=== PATIENT | male | born 1940 | race Caucasian/White ===

== ENCOUNTER 2017-03-08 14:46 | Outpatient (CLI) | payer MEDICARE, MEDICAID ==
[~2017-03-08 14:46] MED LIST: CLOTRIMAZOLE15 GM TOPIC; MULTIVITAMINS1 EA11 ORAL; NKM; VIAGRA25 MG ORAL; VITAMIN D250000 UNI1 ORAL
--- NOTE | 2017-03-08 15:25 | GI Progress Note ---
Assessment/Plan Problems: (1) Weight loss ICD Codes: R63.4 - Abnormal weight loss SNOMED: 98328473, 236679798 (2) Occult blood positive stool ICD Codes: R19.5 - Occult blood positive stool SNOMED: 53684302 (3) Macrocytic anemia ICD Codes: D53.9 - Macrocytic anemia SNOMED: 28052392 (4) Internal hemorrhoids ICD Codes: K64.8 - Internal hemorrhoids SNOMED: 28871121 Status: stable Status Narrative Seen with Dr. Mcghee. Assessment/Plan EGD/colonoscopy scheduled for 03/13/17. - CLD & (Nulytely/Suprep) prep instructions given and acknowledged by patient. - NPO @ ME day prior procedure explained. The patient was seen and examined at bedside and all new and available data was reviewed in the patients chart. I agree with the above findings, impression and plan. (Patient seen earlier today. Signature stamp does not reflect patient encounter time.). -Jasiel Mcghee MD Subjective Subjective No GI symptoms colonoscopy 2012 25 lbs weight loss Objective T 98.4 BP 105/54 P 65 WT 171 lbs General Appearance: WD/WN, no apparent distress, alert Cardiovascular: normal rate Respiratory/Chest: normal breath sounds, no respiratory distress Abdominal Exam: normal bowel sounds, non tender, soft Extremities: normal range of motion, non-tender Antonia Gilliland NChing Mar 08, 2017 15:25 JASIEL MCGHEE Mar 09, 2017 07:24
[2017-03-08 15:40] VITALS: BP 105/54
== END 2017-03-08 15:15 | disposition home or self-care (01) ==
LOC: PAN 14:46
DX: R63.4 Abnormal weight loss (principal); R19.5 Other fecal abnormalities; D53.9 Nutritional anemia, unspecified; K64.8 Other hemorrhoids
CPT/HCPCS: 99211

== ENCOUNTER 2017-03-13 08:09 | Day surgery (SDC) | payer MEDICARE, MEDICAID ==
[2017-03-13] VITALS (9 sets, daily range): BP systolic 123–165; BP diastolic 64–78
[~2017-03-13] VITALS: Ht 165.1 cm; Wt 77.1 kg
[2017-03-13] MEDS ORDERED: ASPIR 8181 MG ORAL (08:50)
[2017-03-13] MEDS ORDERED: VITAMIN D250000 UNI1 ORAL (08:50)
[2017-03-13] MEDS ORDERED: FOLIC ACID1 M1 PO (08:50)
--- NOTE | 2017-03-13 10:25 | Short Stay Surgery H&P ---
History of Present Illness History of Present Illness Chief Complaint see office consult note HPI Dayana Carter is a 76 year old male who was admitted on for Anemia,Weight Loss Patient History Allergies: Coded Allergies: No Known Allergies (Unverified , 03/13/17) NKA PAST MEDICAL HISTORY: Past Surgeries: Social History: Medication History Scheduled Aspirin* (Aspir 81*), 81 MG ORAL DAILY, (Reported) Ergocalciferol (Vitamin D2)* (Vitamin D*), 50,000 UNIT ORAL ONCE A WEEK, ( Reported) Folic Acid (Folic Acid), 1 MG PO DAILY, (Reported) Discontinued Medications Clotrimazole* (Lotrimin*), 1 APPLIC TOPIC TWICE A DAY, (Reported) Discontinued Reason: MD discontinued med Ergocalciferol (Vitamin D2)* (Vitamin D*), 50,000 UNIT ORAL ONCE A WEEK, ( Reported) Discontinued Reason: MD discontinued med Multivitamin (Multivitamins), 1 CAP ORAL DAILY, (Reported) Discontinued Reason: MD discontinued med Sildenafil Citrate (Viagra), 100 MG ORAL DAILY, (Reported) Discontinued Reason: MD discontinued med Physical Exam Vital Signs Last Vital Signs Date Time Temp Pulse Resp B/P (MAP) Pulse Ox O2 Delivery O2 Flow Rate FiO2 03/13/17 08:52 98.5 56 19 130/64 96 Room Air Plan Attestation Are the patient's medical conditions optimized for surgery? ELSI DEY Mar 13, 2017 10:25
--- NOTE | 2017-03-13 10:25 | Pre-Procedure Note/Attestation ---
Pre-Procedure Note/Attestation Complete Prior to Procedure Planned Procedure: not applicable Procedure Narrative: esophagogastroduodenoscopy and colonoscopy Indications for Procedure Pre-Operative Diagnosis: screening colon, GERD Attestation I attest that I discussed the nature of the procedure; its benefits; risks and complications; and alternatives (and the risks and benefits of such alternatives ), prior to the procedure, with the patient (or the patient's legal outside energy sales representatives). I attest that, if there was a reasonable possibility of needing a blood transfusion, the patient (or the patient's legal outside energy sales representatives) was given the [facility] standardized written summary, pursuant to the [place] Blood Safety Act ([place] Health and Safety Code # 1645, as amended). I attest that I re-evaluated the patient just prior to the surgery and that there has been no change in the patient's H&P, except as documented below: ELSI DEY Mar 13, 2017 10:25
--- NOTE | 2017-03-13 10:25 | Pre-Procedure Note/Attestation ---
Pre-Procedure Note/Attestation Complete Prior to Procedure Planned Procedure: not applicable Procedure Narrative: esophagogastroduodenoscopy and colonoscopy Indications for Procedure Pre-Operative Diagnosis: screening colon, GERD Attestation I attest that I discussed the nature of the procedure; its benefits; risks and complications; and alternatives (and the risks and benefits of such alternatives ), prior to the procedure, with the patient (or the patient's legal sales representative consultant). I attest that, if there was a reasonable possibility of needing a blood transfusion, the patient (or the patient's legal sales representative consultant) was given the [facility] standardized written summary, pursuant to the [place] Blood Safety Act ([place] Health and Safety Code # 1645, as amended). I attest that I re-evaluated the patient just prior to the surgery and that there has been no change in the patient's H&P, except as documented below: ELSI DEY Mar 13, 2017 10:25
--- NOTE | 2017-03-13 10:25 | Pre-Procedure Note/Attestation ---
Pre-Procedure Note/Attestation Complete Prior to Procedure Planned Procedure: not applicable Procedure Narrative: esophagogastroduodenoscopy and colonoscopy Indications for Procedure Pre-Operative Diagnosis: screening colon, GERD Attestation I attest that I discussed the nature of the procedure; its benefits; risks and complications; and alternatives (and the risks and benefits of such alternatives ), prior to the procedure, with the patient (or the patient's legal access representative). I attest that, if there was a reasonable possibility of needing a blood transfusion, the patient (or the patient's legal access representative) was given the [facility] standardized written summary, pursuant to the [place] Blood Safety Act ([place] Health and Safety Code # 1645, as amended). I attest that I re-evaluated the patient just prior to the surgery and that there has been no change in the patient's H&P, except as documented below: ELSI DEY Mar 13, 2017 10:25
[2017-03-13] MEDS ORDERED: Propofol 200mg/20ml IV ONE (10:30)
[2017-03-13] MEDS ORDERED: Lidocaine 1% MPF 10mg/ml 5ml ONE (10:30)
--- NOTE | 2017-03-13 10:58 | Endoscopy Procedure Note ---
Endoscopy Procedure Note Indication for Procedure: wt loss Procedures Performed: EGD, colonoscopy Operative Findings/Diagnosis: one polyp Specimen: yes Pt Tolerated Procedure Well: Yes Estimated Blood Loss: none Anesthesiologist: jasmyn Anesthesia: MAC Implant(s) used?: No 50 yrs or older w/o bx or poly: No 10yrs. F/U not recommended: Yes If not recommended, why?: Above average risk 10 yrs. F/U needed: Yes 18 years or older w/prev. colo: Yes <3yrs. since last colonoscopy: No ELSI DEY Mar 13, 2017 10:58
--- NOTE | 2017-03-13 11:03 | Anethesia Preoperative Eval ---
Anesthesia Pre-op PMH/ROS General Date of Evaluation: Mar 13, 2017 Time of Evaluation: 10:35 Anesthesiologist: johnny ASA Score: ASA 3 Mallampati Score Class I : Soft palate, uvula, fauces, pillars visible Class II: Soft palate, uvula, fauces visible Class III: Soft palate, base of uvula visible Class IV: Only hard plate visible Mallampati Classification: Class II Surgeon: best Diagnosis: anemia Surgical Procedure: egd/colonoscopy Anesthesia History: none Family History: no anesthesia problems Allergies: Coded Allergies: No Known Allergies (Unverified , 03/13/17) NKA Medications: see eMAR Past Medical History Gastrointestinal/Genitourinary: Reports: other - gastritis HEENT: Reports: cataract (L), cataract (R) Hematology/Immune: Reports: anemia Anesthesia Pre-op Phys. Exam Physician Exam Last Vital Signs Date Time Temp Pulse Resp B/P (MAP) Pulse Ox O2 Delivery O2 Flow Rate FiO2 03/13/17 08:52 98.5 56 19 130/64 96 Room Air Constitutional: NAD Neurologic: CN 2-12 intact Cardiovascular: RRR Respiratory: CTA Gastrointestinal: S/NT/ND Airway Exam Mallampati Score: Class II MO: full Neck: supple TMD: 2fb ROM: full Anesthesia Pre-op A/P Studies Pre-op Studies: EKG - sinus bradycardia Risk Assessment & Plan Assessment: asa3 Plan: mac Status Change Before Surgery: No Pre-Antibiotics Drug: TESSIE Ron Mar 13, 2017 11:03
[2017-03-13 11:39] LABS: HEMATOCRIT 40.9 % (42.0-52.0); MEAN CORPUSCULAR VOLUME 104 FL (80-99); PLATELET COUNT 86 K/UL (150-450); RED BLOOD COUNT 3.93 M/UL (4.70-6.10); RED CELL DISTRIBUTION WIDTH 10.9 % (11.6-14.8); WHITE BLOOD COUNT 4.1 K/UL (4.8-10.8)
[2017-03-13 12:00] LABS: ALANINE AMINOTRANSFERASE 23 U/L (12-78); ALBUMIN 3.7 G/DL (3.4-5.0); ALBUMIN/GLOBULIN RATIO 1.1 (1.0-2.7); ALKALINE PHOSPHATASE 70 U/L (46-116); AMYLASE 94 U/L (25-115); ANION GAP 4 mmol/L (5-15); ASPARTATE AMINO TRANSFERASE 20 U/L (15-37); BILIRUBIN,TOTAL 0.9 MG/DL (0.2-1.0); BLOOD UREA NITROGEN 16 mg/dL (7-18); CALCIUM 9.1 MG/DL (8.5-10.1); CARBON DIOXIDE 32 MMOL/L (21-32); CHLORIDE 105 MMOL/L (98-107); CREATININE 1.1 MG/DL (0.55-1.30); POTASSIUM 4.5 MMOL/L (3.5-5.1); SODIUM 141 MMOL/L (136-145)
[2017-03-13] MEDS ORDERED: LR 1000ml 1,000 ML IVLG SCH (12:09)
[2017-03-13] MEDS ORDERED: Atropine Inj 1mg/10ml Syr IV PRN (12:15)
[2017-03-13] MEDS ORDERED: fentaNYL 100 mcg/2 mL IV PRN (12:15)
[2017-03-13] MEDS ORDERED: Midazolam 2mg/2ml Inj IVP PRN (12:15)
[2017-03-13] MEDS ORDERED: DiphenhydrAMINE 50mg/ml Inj IVP PRN (12:15)
--- NOTE | 2017-03-13 12:19 | Immediate Post-Op Evaluation ---
Immediate Post-Op Evalulation Immediate Post-Op Evalulation Procedure: egd/colonoscopy Date of Evaluation: Mar 13, 2017 Time of Evaluation: 11:18 IV Fluids: 300ml 0.9ns Blood Products: none Estimated Blood Loss: negligible Blood Pressure Systolic: 129 Blood Pressure Diastolic: 69 Pulse Rate: 47 Respiratory Rate: 18 O2 Sat by Pulse Oximetry: 100 Temperature (Fahrenheit): 97.0 Pain Score (1-10): 0 Nausea: No Vomiting: No Complications none Patient Status: awake, reacts, patent Drug: TESSIE Ron Mar 13, 2017 12:19
--- NOTE | 2017-03-13 12:55 | 48 Hour Post Anesthesia Eval ---
Post Anesthesia Evaluation Procedure: egd/colonoscopy Date of Evaluation: Mar 13, 2017 Time of Evaluation: 11:20 Blood Pressure Systolic: 123 0: 70 Pulse Rate: 49 Respiratory Rate: 18 Temperature (Fahrenheit): 97.0 O2 Sat by Pulse Oximetry: 99 Airway: patent Nausea: No Vomiting: No Pain Intensity: 0 Hydration Status: adequate Cardiopulmonary Status: stable Mental Status/LOC: patient returned to baseline Post-Anesthesia Complications: none Follow-up care needed: N/A TESSIE MURRAY Mar 13, 2017 12:55
--- NOTE | 2017-03-13 16:15 | Procedure Note ---
DATE OF PROCEDURE: 03/13/2017 SURGEON: Jasiel Mcghee M.D. PROCEDURE: Colonoscopy with snare polypectomy and endoscopy with biopsy. ANESTHESIOLOGIST: Sparkle Patel M.D. INSTRUMENT: Olympus adult flexible upper endoscope and colonoscope. INDICATION: Significant weight loss. REASON FOR PROCEDURE: The procedure, risks, benefits, and possible consequences, including hemorrhage, aspiration, perforation and infection, and alternative treatments, were explained to the patient/legal guardian by Dr. Jasiel Mcghee and the patient/legal guardian understood and accepted these risks. PROCEDURE: After informed consent was obtained and the patient was adequately sedated, first Olympus upper endoscope was advanced from mouth into the second portion of the duodenum and retroflexion was performed of the stomach. The patient had evidence of diffuse gastritis. Random biopsy from body and antrum was taken to rule out H. pylori infection. At this time, the upper endoscope was retrieved and the patient was turned over for colonoscopy. First, a rectal exam was performed, which was normal. Then, the scope was advanced rectum into the cecum the appendix, orifice ileocecal valve, and right right upper quadrant palpation. Quality prep was good. The patient had one sessile polyp in the transverse colon, measured roughly about 7 to 8 millimeter in size, removed with the hot snare polypectomy technique. The rest of the exam grossly within normal limit. Retroflexion of the rectum showed some few internal hemorrhoids. SUMMARY FINDINGS: 1. Gastritis, status post biopsy. 2. One colonic polyp removed, see above for details. 3. Internal hemorrhoids. RECOMMENDATIONS: 1. Follow biopsy results and treat accordingly. 2. Recommend repeat colonoscopy in 5 years. Jasiel Mcghee M.D. DR: FRANCISCO JOB#: [id number] CC:
--- NOTE | 2017-03-14 15:46 | Cardiology Report ---
APPROVED REPORT EKG Measurement Heart [id number] [place] 168P47 [id number] Sinus bradycardia Otherwise normal ECG
--- NOTE | 2017-03-14 15:46 | Cardiology Report ---
APPROVED REPORT EKG Measurement Heart [id number] [place] 168P47 [id number] Sinus bradycardia Otherwise normal ECG
--- NOTE | 2017-03-14 15:46 | Cardiology Report ---
APPROVED REPORT EKG Measurement Heart [id number] [place] 168P47 [id number] Sinus bradycardia Otherwise normal ECG
== END 2017-03-13 12:30 | disposition home or self-care (01) ==
LOC: GAS 08:09
DX: R63.4 Abnormal weight loss (principal); K63.5 Polyp of colon; K64.8 Other hemorrhoids; R00.1 Bradycardia, unspecified; K29.50 Unspecified chronic gastritis without bleeding; D12.3 Benign neoplasm of transverse colon
CPT/HCPCS: 36415; 43239; 45380; 80053; 82150; 83690; 85007; 85025; 93005; J2704; 94003; 94150

== ENCOUNTER 2017-03-28 14:56 | Outpatient (CLI) | payer MEDICARE, MEDICAID ==
[~2017-03-28 14:56] MED LIST changes: +ASPIR 8181 MG ORAL; +FOLIC ACID1 M1 PO
--- NOTE | 2017-03-28 15:18 | GI Progress Note ---
Assessment/Plan Problems: (1) Weight loss ICD Codes: R63.4 - Abnormal weight loss SNOMED: 83477783, 826250061 (2) Macrocytic anemia ICD Codes: D53.9 - Macrocytic anemia SNOMED: 96409329 (3) Colon polyp ICD Codes: K63.5 - Colon polyp SNOMED: 54025881 (4) Internal hemorrhoids ICD Codes: K64.8 - Internal hemorrhoids SNOMED: 17898307 Status: stable Status Narrative Seen with Dr. Mcghee. Assessment/Plan SUMMARY FINDINGS reviewed with patient: 1. Gastritis, status post biopsy. >> negative for H. Pylori 2. One colonic polyp removed, see above for details. 3. Internal hemorrhoids. CBC, CMP reviewed with patient >> unmarkable RECOMMENDATIONS: RTC prn repeat colonoscopy in 5 years The patient was seen and examined at bedside and all new and available data was reviewed in the patients chart. I agree with the above findings, impression and plan. (Patient seen earlier today. Signature stamp does not reflect patient encounter time.). - Josh Mcghee MD Subjective Subjective Denies any GI symptoms. Objective T 98.1 BP 109/59 P 76 94 RA WT 171 lbs General Appearance: WD/WN, no apparent distress, alert Cardiovascular: normal rate Respiratory/Chest: normal breath sounds, no respiratory distress Abdominal Exam: normal bowel sounds, non tender, soft Extremities: normal range of motion, non-tender Antonia Gilliland N.Magnus Mar 28, 2017 15:18 ELSI MCGHEE Mar 31, 2017 07:35
[2017-03-28 15:23] VITALS: BP 109/59
== END 2017-03-28 15:45 | disposition home or self-care (01) ==
LOC: PAN 14:56
DX: R63.4 Abnormal weight loss (principal); D53.9 Nutritional anemia, unspecified; K63.5 Polyp of colon; K64.8 Other hemorrhoids; K29.70 Gastritis, unspecified, without bleeding
CPT/HCPCS: 99211